=== PATIENT | male | born 1950 | race African-American/Black ===

== ENCOUNTER 2019-09-09 12:00 | Inpatient (IN) | payer MEDICARE ==
[2019-09-14] MEDS ORDERED: Bupivacaine PF 0.5% 30 ML VIAL ONE (06:10)
[2019-09-14] MEDS ORDERED: Thrombin 5000 UNITS/5 ML VIAL ONE (06:10)
[2019-09-14] MEDS ORDERED: EPINEPHrine 1 MG/ML AMP ONE (06:10)
[2019-09-14] MEDS ORDERED: SUGAMMADEX SODIUM 500 MG/5 ML VIAL ONE (06:15)
[2019-09-14] MEDS ORDERED: Ondansetron PF 4 MG/2 ML Vial ONE ×3 (06:15→13:48)
[2019-09-14] MEDS ORDERED: Famotidine/PF 20 mg/2ml Vial ONE (06:15)
[2019-09-14] MEDS ORDERED: Phenylephrine 10 MG/ML VIAL ONE (06:15)
--- NOTE | 2019-09-14 06:18 | HP ---
REASON FOR H AND P: Surgery on 09/14/2019. Case #[id number]. CHIEF COMPLAINT: Lower back and leg pain. HISTORY OF PRESENT ILLNESS: Mr. Fry is a 69-year-old gentleman with prior surgery at [facility] in [place], [place]. He underwent a L4-L5 TLIF on 2007 due to L4-L5 stenosis with severe spondylosis and disk bulge. He continues to have instability, pain with twisting or straightening. It began radiating down his legs, which keeps him leaning forward while he walks. Physical therapy, spinal epidural injection, and medications have given him temporary relief, unfortunately nothing long-lasting. He denies bladder or bowel dysfunction. MEDICATIONS: Cyclobenzaprine, diclofenac, esomeprazole, pravastatin, and tramadol, PAST MEDICAL HISTORY: High cholesterol, thyroid disease, LARYNGOSPASM POST ANESTHESIA. ALLERGIES: URBAN PEPPERS. SURGICAL HISTORY: Left knee surgery in 1982, right should surgery, disk fusion 2007. HOSPITALIZATIONS: Nervous stomach in 1959, kidney stone in 1981, back surgery, L4-L5 fusion in 2007. FAMILY HISTORY: Father , diagnosed with diabetes, heart disease, stroke , cancer. Mother , hypertension, stroke. Children alive. SOCIAL HISTORY: Nonsmoker. Denies alcohol or illicit drug use. REVIEW OF SYSTEMS: CONSTITUTIONAL: Denies fever or chills. ENT: Denies change in hearing or vision. CARDIAC: Denies chest pain, shortness of breath, or diaphoresis. PULMONARY: Denies shortness of breath, cough, or hemoptysis. GI: Denies abdominal pain, nausea, vomiting, diarrhea, or change in stool formation and consistency. : Denies trouble with urination, frequency of urination, or bloody urine. SKIN: Denies skin rash, bruising, bleeding, or skin masses. MUSCULOSKELETAL: As per history of present illness. NEUROLOGIC: As per history of present illness. PSYCHOLOGIC: Denies anxiety, depression, or behavior changes. PHYSICAL EXAMINATION: VITAL SIGNS: Weight 174. Height 5 feet and 7 inches. HEENT: Pupils are equal. Extraocular movements are intact. NECK: Soft, supple. No masses are noted. Range of motion is intact and nonpainful. NEUROLOGIC: Awake, alert, and oriented x3. Memory, attention, fund of knowledge normal. Cranial nerves grossly intact. Gait and station: Leans forward. Motor exam: There is normal strength in the iliopsoas, quadriceps, hamstrings, anterior tib, EHL, gastrocsoleus, and toe flexors. Sensory exam: There is no dermatomal sensory loss. Reflex exam: Symmetric, hypoactive knees and ankles. IMAGING STUDIES: MRI, prior L4-L5 fusion surgery, L3-L4 instability, stenosis and foramina narrowing. Legacy polyaxial screw system from 2007. ASSESSMENT: Spondylolisthesis in the lumbar region, spinal stenosis, lumbar region without neurogenic claudication, osseous and subluxation stenosis of intervertebral foramen of the lumbar region. PLAN: Laminectomy L3-L4, removal of the L4-L5 rods, fusion L3-L4-L5. Preop testing; CBC, PT/PTT. COVID-19 and anesthesia clearance. INFORMED CONSENT: We discussed the indications, risks, benefits, alternatives, and expected results from surgery. The risks discussed included, but were not limited to bleeding, infection, CSF leak, nerve damage, weakness, incontinence, cauda equina injury, arachnoiditis, paralysis, ventilator dependency, wheelchair dependency, loss of vision, hardware misplacement, cardiopulmonary complications of anesthesia, or . Long-term complications discussed included, but were not limited to degeneration of surrounding disk and future surgery. He understands the risks and is willing to proceed. Job ID: [id number] [facility]
[2019-09-14] MEDS ORDERED: Fentanyl 100 MCG/2 ML VIAL ONE ×5 (06:56→15:48)
[2019-09-14] MEDS ORDERED: Rocuronium Bromide 10 MG/ML (10ML VIAL) ONE (13:48)
[2019-09-14] MEDS ORDERED: PHENYLEPHRINE-NS 100 MCG/ML 10 ML SYRINGE ONE (13:48)
[2019-09-14] MEDS ORDERED: Ketorolac Tromethamine 30 MG/ML VIAL ONE (13:48)
[2019-09-14] MEDS ORDERED: Lidocaine 1% PF 5 ML VIAL ONE (13:48)
[2019-09-14] MEDS ORDERED: Vecuronium 10 MG VIAL ONE (13:48)
[2019-09-14] MEDS ORDERED: Metoclopramide HCl 10 MG/2 ML VIAL ONE (13:48)
[2019-09-14] MEDS ORDERED: Glycopyrrolate 0.2 MG/ML 5 ML SYRINGE ONE (13:48)
[2019-09-14] MEDS ORDERED: PROPOFOL 200 MG/20 ML VIAL ONE (13:48)
[2019-09-14] MEDS ORDERED: EPHEDRINE 25 MG/5 ML SYRINGE ONE (13:48)
[2019-09-14] MEDS ORDERED: Dexamethasone 20 MG/5 ML VIAL ONE (13:48)
[2019-09-14] MEDS ORDERED: Promethazine HCl 25 MG/ML VIAL SLOW IVP PRN (14:00)
[2019-09-14] MEDS ORDERED: Promethazine HCl 25 MG/ML VIAL IM PRN (14:00)
[2019-09-14] MEDS ORDERED: Ondansetron HCl/PF 4 MG/2 ML Vial IVP PRN (14:00)
[2019-09-14] MEDS ORDERED: SUGAMMADEX SODIUM 200 MG/2 ML VIAL ONE (14:04)
[2019-09-14] MEDS ORDERED: Acetaminophen 325 MG TAB PO PRN (14:54)
[2019-09-14] MEDS ORDERED: Morphine 2 MG/ML VIAL SLOW IVP PRN (14:54)
[2019-09-14] MEDS ORDERED: Milk Of Magnesia 30 ML UDCUP PO PRN (14:54)
[2019-09-14] MEDS ORDERED: Ondansetron PF 4 MG/2 ML Vial IVP PRN (14:54)
[2019-09-14] MEDS ORDERED: diphenhydrAMINE 25 MG CAP PO PRN (14:54)
[2019-09-14] MEDS ORDERED: traMADol HCl 50 MG TAB PO PRN (14:54)
[2019-09-14] MEDS ORDERED: tiZANidine HCl 4 MG TAB PO PRN (14:54)
[2019-09-14] MEDS ORDERED: Promethazine 25 MG TAB PO PRN (14:54)
[2019-09-14] MEDS ORDERED: Tamsulosin HCl 0.4 MG CAP PO PRN (14:54)
[2019-09-14] MEDS ORDERED: Mag-Al 1200 mg/1200 mg/30 ML UDCUP PO PRN (14:54)
[2019-09-14] MEDS ORDERED: Scopolamine 1.5 mg/72 hour Patch TD PRN (14:54)
[2019-09-14] MEDS ORDERED: Loratadine 10 MG TAB PO PRN (15:15)
--- NOTE | 2019-09-14 15:44 | OP ---
DATE OF PROCEDURE: 09/14/2019 PHOTO LAB TECHNICIAN: Abel Ortiz PA-C PREOPERATIVE INDICATION: Treat pain and prevent neurological deterioration. PREOPERATIVE DIAGNOSES: Adjacent segment stenosis with neurogenic claudication, prior lumbar fusion, unstable spondylolisthesis. POSTOPERATIVE DIAGNOSES: Adjacent segment stenosis with neurogenic claudication, prior lumbar fusion, unstable spondylolisthesis. PROCEDURES PERFORMED: Reopening lumbar incision, removal of posterior L4-L5 instrumentation, inspection of L4-5 fusion, decompressive laminectomy with medial facetectomy and foraminotomy at L2-L3 and L3-L4, transforaminal lumbar interbody arthrodesis at L3-L4, placement of intervertebral biomechanical device at L3-L4, pedicle screw and mohan instrumentation at L3-L4, posterolateral arthrodesis at L3-L4 and L4-L5, pedicle screw and mohan instrumentation from L3 through L5, local morselized autograft, morselized allograft, operating microscope. PREOPERATIVE MEDICATION: Ancef 2 g IV. DRAIN NUMBER: Zero. DRAIN TYPE: None. DESCRIPTION OF PROCEDURE: The patient was brought to the operating room. General endotracheal anesthesia was induced. The patient was carefully positioned on the Ray frame with appropriate padding for the chest and hips. A lateral fluoro radiograph confirmed that the previous incision could give us access from L5 to L4. We marked out incision superiorly to extending the previous incision superiorly. The lumbar skin was sterilely prepped and draped. We opened with a 10 blade knife and we controlled bleeding with bipolar and monopolar cautery. We used monopolar cautery to dissect through subcutaneous tissues to the thoracodorsal fascia and the scar tissue in the midline. We incised the fascia in the midline and reflected the paraspinal muscles and scar tissue off the spinous process and lamina of L2, L3, the remnant of L4 as well as the L4-L5 mohan instrumentation. A self-retaining retractor was placed and a lateral fluoro radiograph confirmed the levels upon which we were operating. We then began our decompression. Here, we used Adson rongeur to remove the spinous process of L2 and L3 and Kerrison rongeur to fashion a laminectomy at L3-L4 and at L2-L3. The operating microscope was brought into the field when it was impossible to remove scar tissue from the dura safely without microsurgical techniques. Under the microscope and using microsurgical techniques, we freed scar tissue from the dura at L3-L4. There was a loose fragment of bone and soft tissue that looked like it had been sewn down to the dura during his previous surgery on the left at L4-L5. We circumferentially dissected the scar tissue free of the dura around the free-floating piece of bone and removed it. Indeed, the dura came up with some of the scar tissue, where it had been sutured to some soft tissue in the epidural space. This opening allow some CSF egress. Thankfully, three interrupted 6-0 Prolene sutures CSF flow. A Valsalva was administered and no CSF was noted. We continued our decompression. We freed the lateral recesses by performing medial facetectomies. We performed a foraminotomy over the right L2 nerve root, bilateral L3 nerve roots and we ensured that the L4 nerve roots were still decompressed in the area of previous surgery. Once we had verified our decompression of neural elements, we turned our attention to fixing the unstable spondylolisthesis. We performed a complete facetectomy at L3-L4 on the left. This gave us access through the foramen to the interspace. We incised the interspace and removed disk contents using curettes and rongeurs. We measured the height of the interspace to 9 mm using a rectangular-shaped bone rasp. We prepared the endplates for grafting with curettes and then brought a 9-mm PEEK intervertebral graft into the field. Laminectomy bone was carefully cleaned of soft tissue, morcellized and added into demineralized bone matrix as our fusion substrate. The substrate was packed into the center of the PEEK device, which was advanced into the interspace under radiographic guidance to the appropriate depth. We turned our attention to pedicle screw instrumentation. Using bony anatomic landmarks, palpation of the medial portion of the pedicles, and a lateral fluoro radiograph as our guide, we chose entry points for pedicle screws at L3. We drilled our entry points and then used a bone awl to advance through the pedicles into the vertebral bodies. We tapped each trajectory with a threaded tap and then found it completely encased in bone with a ball probe. 6.5 x 55 mm screws were placed in the L3 pedicles bilaterally. We turned our attention to removal of posterior instrumentation at L4-L5. Using a hex head wrench, we loosened the caps of the previous instrumentation. The rods were removed. We inspected around the rods into the fusion substrate. This was more dense on the left and non-existent on the right. We identified the transverse processes of L4 and L5 as well as L3 bilaterally. We irrigated with bacitracin irrigation. We then brought new 70 mm rods into the field. These were contoured to engage with each of the 3 screws on either side. We tightened the pre-existing caps down over the rods at L4 and L5 and new caps over the mohan into L3 pedicle screws. Using a torque/counter-torque mechanism, we ensured adequate tightness. We irrigated once again with bacitracin irrigation. We then used a high-speed drill to decorticate the transverse processes from L3 through L5 bilaterally and over the decorticated bone, we left demineralized bone matrix and morselized autograft. On the left side, this included the fusion mass at L4-L5 and on the right side, there was very little fusion mass to drill away. We then infused local anesthetic in the paraspinal muscles. We irrigated the center of the wound one last time. We reinforced our dural closure with DuraSeal tissue sealant. We treated the wound with vancomycin powder and we closed in anatomical layers. We applied a sterile dressing. This was a clean case, no contamination. Job ID: [id number]
[2019-09-14 16:45] VITALS: BMI 28.0
[2019-09-14] MEDS: Sodium Chloride 0.9% 1,000 ML IV SCH (17:37)
[2019-09-14] MEDS: Simvastatin 5 MG TAB PO SCH ×2 (21:00→21:05)
[2019-09-14] MEDS: Tamsulosin HCl 0.4 MG CAP PO SCH (21:01)
[2019-09-14] MEDS: CEFAZOLIN 2 GM in Premix Bag 1 BAG IVPB SCH (21:03)
[2019-09-15] MEDS: Acetaminophen/Codeine 30-300mg Tablet PO PRN ×2 (01:01→09:41)
[2019-09-15] MEDS: Sodium Chloride 0.9% 1,000 ML IV SCH (04:11)
[2019-09-15] MEDS: CEFAZOLIN 2 GM in Premix Bag 1 BAG IVPB SCH (05:36)
[2019-09-15] MEDS ORDERED: Tamsulosin HCl 0.4 MG CAP PO SCH (09:00)
[2019-09-15] MEDS ORDERED: Prevnar 13-Val Conj/PF 0.5 ML SYRINGE IM ONE (09:00)
[2019-09-15] MEDS ORDERED: Docusate 100 MG CAP PO PRN (12:48)
[2019-09-15] MEDS: HYDROcodone/Acetaminophen 7.5/325 mg Tablet PO PRN (16:44)
--- NOTE | 2019-09-15 17:38 | PRG ---
DATE OF SERVICE: 09/15/2019 SUBJECTIVE: Mr. Fry is a 69-year-old gentleman with lower back and leg pain. He is one day out from L3-L4 laminectomy and removal of a L4-L5 mohan and L3, L4, and L5 fusion. He is resting comfortably in bed and his LSO brace is on the shelf. His vitals remained stable and I do not see any temperatures recorded in electronic records from last night. His Genao catheter has been removed and he has been able to urinate without difficulty. His pain has been well controlled with p.o. medication. He states he is doing very well. Denies any pain, that is out of extraordinary. He has good movement and strength throughout all his extremities. He has been ambulating with a walker. OBJECTIVE: On exam, he has good bilateral upper and lower extremity strength. Sensation is intact and equal throughout all extremities. Lumbar incision is clean, dry, and intact. I do not know any drainage. PLAN: We will ask case management, physical therapy and occupational therapy to treat and evaluate Mr Fry for inpatient rehab and a walker. He would like to go to [facility] in [place] which is close to his residence. Job ID: [id number] MTDD
[2019-09-15] MEDS: Simvastatin 5 MG TAB PO SCH (21:11)
[2019-09-15] MEDS: Tamsulosin HCl 0.4 MG CAP PO SCH (21:12)
[2019-09-16] MEDS: HYDROcodone/Acetaminophen 7.5/325 mg Tablet PO PRN (02:37)
[2019-09-16] MEDS ORDERED: Piperacillin/Tazobactam 4.5 GM VIAL ONE (06:52)
--- NOTE | 2019-09-16 08:20 | PRG ---
DATE OF SERVICE: 09/16/2019 I saw Eris Fry this morning on rounds. He was in the restroom and as I came in, easily made it out of the bathroom and we talked about his ongoing care. Case management has made contact with inpatient rehabilitation in [place], [place]. We filled out the forms for transfer today. Mr. Fry is afebrile. He has no new neurological deficit. The incision is healing well and he can go. We will follow up in 2 weeks to remove sutures. Job ID: [id number]
[2019-09-16 08:29] VITALS: BP 134/66; TEMP 99.1
--- NOTE | 2019-09-17 14:31 | DIS ---
DATE OF ADMISSION: 09/14/2019 DATE OF DISCHARGE: 09/16/2019 HOSPITAL COURSE: Mr. Fry is a 69-year-old gentleman with lower back and leg pain. He is two days out from L3-L4 laminectomy and removal of L4-L5 mohan and at L3, L4, and L5 fusion. Following surgery, he was transitioned to the med/surg floor. His pain has been well controlled with p.o. medications. He is tolerating a regular diet and he is voiding appropriately. He is otherwise doing well and is ambulating easily in the halls and feels that he is ready to go to inpatient rehab today. On exam, he is awake and alert, in no acute distress. He has free active range of motion in extremities. No focal motor weakness. No reflex asymmetry. His incision is clean, dry, and intact. We will plan to discharge Mr. Fry to inpatient rehab today pending acceptance by insurance. I have discussed home care precautions. CONDITION ON DISCHARGE: The patient had no emergencies. Condition was stable for discharge. MEDICATIONS: Home going medications were reviewed followup arrangements made by our environmental coordinator in our clinic and call to the patient. ACTIVITIES: Restrictions were reviewed in person. Wound care showers are acceptable. The patient should pat the incision dry, but not submerge it under the surface of the body of water for 2 months. Job ID: [id number]
== END 2019-09-16 14:32 | DRG 455 ==
LOC: SURG A 09-14 05:45 → ONC 09-14 16:39
PROVIDERS: ADMIT Neurological Surgery; ATTEND Neurological Surgery
PROC: 0SG10AJ Fusion of 2 or more Lumbar Vertebral Joints with Interbody Fusion Device, Posterior Approach, Anterior Column, Open Approach (ICD-10-PCS; principal; 2019-09-14)
PROC: 0SG1071 Fusion of 2 or more Lumbar Vertebral Joints with Autologous Tissue Substitute, Posterior Approach, Posterior Column, Open Approach (ICD-10-PCS; 2019-09-14)
PROC: 0SB20ZZ Excision of Lumbar Vertebral Disc, Open Approach (ICD-10-PCS; 2019-09-14)
PROC: 0SP004Z Removal of Internal Fixation Device from Lumbar Vertebral Joint, Open Approach (ICD-10-PCS; 2019-09-14)
DX: M43.16 Spondylolisthesis, lumbar region (principal); M48.062 Spinal stenosis, lumbar region with neurogenic claudication; J30.2 Other seasonal allergic rhinitis; M26.609 Unspecified temporomandibular joint disorder, unspecified side; E05.90 Thyrotoxicosis, unspecified without thyrotoxic crisis or storm; N40.0 Benign prostatic hyperplasia without lower urinary tract symptoms; E78.5 Hyperlipidemia, unspecified; I71.4 Abdominal aortic aneurysm, without rupture; Z79.899 Other long term (current) drug therapy; Z91.018 Allergy to other foods
CPT/HCPCS: 76000; C1713; C1768; J0171; J0690; J1100; J1885; J2270; J2370; J2405; J2543; J2704; J2765; J3010; J3370; J3490; S0020; S0028